=== PATIENT | female | born 1980 | race African-American/Black ===

== ENCOUNTER 2019-02-19 11:52 | Emergency (ER) | payer OTHER ==
--- NOTE | 2019-02-19 14:05 | RAD ---
TWO VIEWS CHEST: DATE: 02/19/2019. PROVIDED CLINICAL HISTORY: Cough. FINDINGS: Cardiac and mediastinal silhouette is within normal limits. Lungs appear clear. No pleural fluid or pneumothorax apparent. IMPRESSION: No evidence for an acute cardiopulmonary process. POS: [facility]
== END 2019-02-19 13:12 | disposition home or self-care (01) ==
LOC: ERS 11:52
DX: R05 Cough (principal)
CPT/HCPCS: 71046

== ENCOUNTER 2020-07-22 17:48 | Emergency (ER) | payer BC, OTHER ==
--- NOTE | 2020-07-22 18:21 | RAD ---
EXAM: Single view of the chest HISTORY: Chest pain COMPARISON: None FINDINGS: Single view of the chest shows a normal sized cardiomediastinal silhouette. There is no denita dence of consolidation, mass, or pleural effusion. No acute osseous abnormality. IMPRESSION: No evidence of acute cardiopulmonary disease
[2020-07-22 18:25] LABS: Hemoglobin 13.4 g/dL (12.0-16.0); Mean Corpuscular HGB CONC 32.9 g/dL (32.0-36.0); Mean Corpuscular Hemoglobin 27.9 pg (27.0-31.0); Mean Corpuscular Volume 84.8 fL (78.0-98.0); Mean Platelet Volume 11.4 fL (7.4-10.4); Platelet Count 145 thou/uL (130-400); RBC Distribution Width 12.7 % (11.5-14.5); Red Blood Cell (RBC) Count 4.81 mill/uL (4.20-5.40); White Blood Cell (WBC) Count 5.1 thou/uL (4.8-10.8)
[2020-07-22 18:39] LABS: Eosinophils 3 % (0-10); Large Platelets SLIGHT; Lymphocytes 43 % (21-51); MDiff Complete? YES; Monocytes 11 % (0-10); Neutrophil 37 % (42-75); Platelet Morphology Comment Appears Adequate; RBC Morphology Normal; Reactive Lymphocytes 5 % (0-10)
[2020-07-22 18:40] LABS: ALT (SGPT) 10 U/L (8-55); AST (SGOT) 15 U/L (5-34); Albumin 4.3 g/dL (3.5-5.0); Alkaline Phosphatase 37 U/L (40-110); Anion Gap 12 mmol/L (10-20); BUN (Urea Nitrogen) 16 mg/dL (7.0-18.7); Bilirubin, Total 0.2 mg/dL (0.2-1.2); CK (CPK) 123 U/L (29-168); Calc. Creatinine Clearance 0 mL/min (70-130); Calcium 9.4 mg/dL (7.8-10.44); Carbon Dioxide 23 mmol/L (22-29); Chloride 108 mmol/L (98-107); Estimated GFR-MDRD 84; Globulin 3.5 g/dL (2.4-3.5); Glucose 103 mg/dL (70-105); Lipase 23 U/L (8-78); Potassium 3.6 mmol/L (3.5-5.1); Protein, Total 7.8 g/dL (6.0-8.3); Sodium 139 mmol/L (136-145)
[2020-07-22 21:40] LABS: Troponin I Less than 0.010 ng/mL (< 0.028)
--- NOTE | 2020-07-27 13:07 | EKG ---
Test Reason : Blood Pressure : / mmHG Vent. Rate : 058 BPM Atrial Rate : 058 BPM P-R Int : 156 ms QRS Dur : 084 ms QT Int : 390 ms P-R-T Axes : 065 059 036 degrees QTc Int : 382 ms Sinus bradycardia Possible Left atrial enlargement Borderline ECG Confirmed by MARY JANE KENT ([id number]), [employer] [place] ([id number]) on 07/27/2020 1:06:47 PM Referred By: Confirmed By:MARY JANE KENT
== END 2020-07-22 22:43 | disposition home or self-care (01) ==
LOC: ERS 17:48
DX: R07.9 Chest pain, unspecified (principal); F41.9 Anxiety disorder, unspecified
CPT/HCPCS: 36415; 71045; 80053; 82550; 83690; 84484; 85025; 93005

== ENCOUNTER 2024-12-15 11:31 | Outpatient (CLI) | payer OTHER | END 2024-12-15 11:32 | disposition home or self-care (01) | LOC: BICRAD 11:31 | PROVIDERS: ATTEND Nurse Practitioner Family | DX: S89.91XA Unspecified injury of right lower leg, initial encounter (principal); M25.461 Effusion, right knee ==